=== PATIENT | female | born 1990 | race Caucasian/White ===

== ENCOUNTER 2017-11-09 01:35 | Emergency (ER) | payer OTHER ==
[~2017-11-09] VITALS: Ht 149.9 cm; Wt 104.3 kg
[~2017-11-09 01:35] MED LIST: FERR-193 PO; [UNRECOGNIZED DRUG - CODE] PO
[2017-11-09 01:40] VITALS: BP 130/73
--- NOTE | 2017-11-09 01:44 | NUR ---
TO LOBBY, LIZANDRO PEREZ,A/W BED, SHANNON NOTED
--- NOTE | 2017-11-09 02:02 | NUR ---
PT TAKEN TO BED 12
--- NOTE | 2017-11-09 02:05 | NUR ---
27/F CAME IN W C/O LOWER ABD PAIN AND VOMITING SINCE NOON YESTERDAY. REPORTS SEVERAL EMETIC EPISODES WITH DECREASED APPETITE. BS ACTIVE X 4, ABD SOFT AND ROUND, +TENDERNESS DIFFUSED. DENIES FEVER/CHILLS, SOB/CP, DENIES DIARRHEA. DENIES HEMATEMESIS, DENIES HEMATURIA/DYSURIA. PMH: CHOLECYSTECTOMY, ANEMIA RX: IRON SUPPLEMENT
[2017-11-09] MEDS ORDERED: ONDANSETRON 4 MG ODT PO ONE (02:30)
[2017-11-09 03:23] LABS: BASOPHILS # (AUTO) 0.1 K/uL (0.00-0.22); BASOPHILS % (AUTO) 0.7 % (0.0-2.0); EOSINOPHILS # (AUTO) 0.1 K/uL (0-0.4); EOSINOPHILS % (AUTO) 1.4 % (0.0-4.0); HEMATOCRIT 42.9 % (36-48); HEMOGLOBIN 13.8 g/dL (12.0-16.0); LYMPHOCYTES % (AUTO) 11.6 % (20.5-51.1); MEAN CORPUSCULAR HEMOGLOBIN 24 pg (27-31); MEAN CORPUSCULAR HGB CONC 32 g/dL (33-37); MEAN CORPUSCULAR VOLUME 73 fL (80-94); MONOCYTES # (AUTO) 0.3 K/uL (0.8-1.0); MONOCYTES % (AUTO) 3.8 % (1.7-9.3); NEUTROPHILS # (AUTO) 6.7 K/uL (1.8-7.7); NEUTROPHILS % (AUTO) 82.5 % (42.2-75.2); PLATELET COUNT (AUTO) 293 K/uL (140-450); RED BLOOD CELL COUNT(AUTO) 5.84 MIL/uL (4.20-5.40); RED CELL DISTRIBUTION WIDTH 15.1 % (11.6-13.7); WHITE BLOOD COUNT (AUTO) 8.2 K/uL (4.8-10.8)
[2017-11-09 03:41] VITALS: BP 100/59
== END 2017-11-09 03:41 | disposition home or self-care (01) ==
LOC: MED 01:35
DX: R11.10 Vomiting, unspecified (principal); R03.0 Elevated blood-pressure reading, without diagnosis of hypertension; Z79.899 Other long term (current) drug therapy; Z90.49 Acquired absence of other specified parts of digestive tract
CPT/HCPCS: 36415; 85025; 99283; S0119